=== PATIENT | male | born 1945 | race Caucasian/White ===

== ENCOUNTER → 2016-12-07 | Outpatient (REF) | payer MEDICARE, BC, OTHER ==
[2016-12-07 12:24] LABS: MEAN CORPUSCULAR HEMOGLOBIN 30.2 pg (27.0-33.0); MEAN CORPUSCULAR VOLUME 88.6 fl (80.0-96.0); RED CELL DISTRIBUTION WIDTH 12.6 % (11.5-14.5); WHITE BLOOD COUNT 6.4 K/mm3 (4.0-10.0)
[2016-12-07 12:39] LABS: ALBUMIN 3.9 GM/DL (3.2-5.2); ALKALINE PHOSPHATASE 73 U/L (45-117); ALT/SGPT 24 U/L (12-78); ANION GAP 6 MEQ/L (8-16); AST/SGOT 16 U/L (15-37); BILIRUBIN,TOTAL 1.4 MG/DL (0.2-1.0); BLOOD UREA NITROGEN 23 MG/DL (7-18); CALCIUM LEVEL 8.7 MG/DL (8.8-10.2); CARBON DIOXIDE LEVEL 31 MEQ/L (21-32); CHLORIDE LEVEL 105 MEQ/L (98-107); CHOLESTEROL LEVEL 105 MG/DL (<200); CREATININE FOR GFR 1.05 MG/DL (0.70-1.30); GLOMERULAR FILTRATION RATE > 60.0 (>49); GLUCOSE, FASTING 125 MG/DL (80-110); POTASSIUM SERUM 4.2 MEQ/L (3.5-5.1); SODIUM LEVEL 142 MEQ/L (136-145); TOTAL PROTEIN 6.5 GM/DL (6.4-8.2); TRIGLYCERIDES LEVEL 32 MG/DL (<150)
== END ==
LOC: M LABDRAW1 11:55
PROVIDERS: ATTEND Family Medicine
DX: I10 Essential (primary) hypertension (principal)

== ENCOUNTER → 2018-03-22 | Outpatient (CLI) | payer MEDICARE, BC, OTHER ==
[2018-03-22 07:40] LABS: BASO % 0.7 % (0.0-1.0); EOS # 0.1 10^3/uL (0.0-0.50); EOS % 2.3 % (0.0-3.0); HEMATOCRIT 43.1 % (42.0-52.0); HEMOGLOBIN 14.9 g/dl (13.5-17.5); IMMATURE GRANULOCYTE % 0.3 % (0-3.0); LYMPH # 1.3 10^3/uL (1.5-4.5); LYMPH % 22.1 % (24.0-44.0); MEAN CORPUSCULAR HEMOGLOBIN 29.7 pg (27.0-33.0); MEAN CORPUSCULAR HGB CONC 34.6 g/dl (32.0-36.5); MONO # 0.6 10^3/uL (0.0-0.8); MONO % 9.3 % (0.0-5.0); NEUTROPHILS # 3.9 10^3/uL (1.8-7.7); NEUTROPHILS % 65.3 % (36.0-66.0); PLATELET COUNT, AUTOMATED 192 10^3/uL (150-450); RED BLOOD COUNT 5.01 10^6/uL (4.30-6.10); RED CELL DISTRIBUTION WIDTH 13.2 % (11.5-14.5)
[2018-03-22 08:37] LABS: ALBUMIN 3.9 GM/DL (3.2-5.2); ALBUMIN/GLOBULIN RATIO 1.39 (1.00-1.93); ALKALINE PHOSPHATASE 84 U/L (45-117); ALT/SGPT 29 U/L (12-78); ANION GAP 9 MEQ/L (8-16); AST/SGOT 17 U/L (7-37); BILIRUBIN,TOTAL 1.7 MG/DL (0.2-1.0); BLOOD UREA NITROGEN 21 MG/DL (7-18); CALCIUM LEVEL 8.7 MG/DL (8.8-10.2); CARBON DIOXIDE LEVEL 28 MEQ/L (21-32); CHLORIDE LEVEL 105 MEQ/L (98-107); CHOLESTEROL LEVEL 114 MG/DL (<200); CHOLESTEROL RISK RATIO 2.533 (<5); GLOMERULAR FILTRATION RATE > 60.0 (>42); GLUCOSE, FASTING 104 MG/DL (70-100); HDL CHOLESTEROL 45 MG/DL (>40); LDL CHOLESTEROL 57.4 MG/DL (<100); NON-HDL-C 69 MG/DL; POTASSIUM SERUM 4.1 MEQ/L (3.5-5.1); SODIUM LEVEL 142 MEQ/L (136-145); TOTAL PROTEIN 6.7 GM/DL (6.4-8.2); TRIGLYCERIDES LEVEL 58 MG/DL (<150)
== END ==
LOC: M LAB 06:30
DX: I10 Essential (primary) hypertension (principal)
CPT/HCPCS: 80053

== ENCOUNTER 2018-07-31 12:44 | Emergency (ER) | payer MEDICARE, BC, OTHER ==
[2018-07-31 13:48] LABS: KETONE, URINE AUTO RFX NEGATIVE (NEGATIVE); LEUKOCYTE ESTERASE UR AUTO RFX NEGATIVE (NEGATIVE); MUCUS, URINE RFX SMALL (NEGATIVE); NITRITE, URINE AUTO RFX NEGATIVE (NEGATIVE); RBC, URINE AUTO RFX 78 /HPF (0-3); SPECIFIC GRAVITY UR AUTO RFX 1.021 (1.002-1.035); SQUAM EPITHELIAL CELL UR AURFX 0 /HPF (0-6); WBC, URINE AUTO RFX 1 /HPF (0-3)
[2018-07-31 14:50] LABS: BASO # 0.1 10^3/uL (0.0-0.2); BASO % 0.5 % (0.0-1.0); EOS % 0.2 % (0.0-3.0); HEMATOCRIT 44.9 % (42.0-52.0); HEMOGLOBIN 15.3 g/dl (13.5-17.5); IMMATURE GRANULOCYTE % 0.3 % (0-3.0); LYMPH # 0.7 10^3/uL (1.5-4.5); LYMPH % 7.2 % (24.0-44.0); MEAN CORPUSCULAR HEMOGLOBIN 29.8 pg (27.0-33.0); MEAN CORPUSCULAR HGB CONC 34.1 g/dl (32.0-36.5); MEAN CORPUSCULAR VOLUME 87.4 fl (80.0-96.0); MONO # 0.5 10^3/uL (0.0-0.8); MONO % 4.8 % (0.0-5.0); NEUTROPHILS # 8.9 10^3/uL (1.8-7.7); PLATELET COUNT, AUTOMATED 193 10^3/uL (150-450); RED BLOOD COUNT 5.14 10^6/uL (4.30-6.10); RED CELL DISTRIBUTION WIDTH 12.9 % (11.5-14.5); WHITE BLOOD COUNT 10.2 10^3/uL (4.0-10.0)
[2018-07-31] MEDS: NS 1,000 ML IV (14:59)
[2018-07-31] MEDS: ONDANSETRON 4MG/2ML VIAL (J2405) IV (14:59)
[2018-07-31] MEDS: KETOROLAC 30 MG/ML VIAL (J1885) IV (14:59)
[2018-07-31 15:02] LABS: INR 0.94; PROTHROMBIN TIME 12.7 SECONDS (12.1-14.4)
[2018-07-31 15:03] LABS: PARTIAL THROMBOPLASTIN TIME 32.3 SECONDS (25.4-37.6)
[2018-07-31 15:36] LABS: ALBUMIN 4.4 GM/DL (3.2-5.2); ALBUMIN/GLOBULIN RATIO 1.63 (1.00-1.93); ALKALINE PHOSPHATASE 90 U/L (45-117); ALT/SGPT 28 U/L (12-78); AMYLASE 39 U/L (25-115); ANION GAP 9 MEQ/L (8-16); AST/SGOT 20 U/L (7-37); BILIRUBIN,DIRECT 0.3 MG/DL (0.0-0.2); BILIRUBIN,TOTAL 1.8 MG/DL (0.2-1.0); BLOOD UREA NITROGEN 26 MG/DL (7-18); CALCIUM LEVEL 9.2 MG/DL (8.8-10.2); CARBON DIOXIDE LEVEL 26 MEQ/L (21-32); CHLORIDE LEVEL 107 MEQ/L (98-107); GLOMERULAR FILTRATION RATE > 60.0 (>42); GLUCOSE, FASTING 106 MG/DL (70-100); LIPASE 111 U/L (73-393); POTASSIUM SERUM 3.9 MEQ/L (3.5-5.1); SODIUM LEVEL 142 MEQ/L (136-145); TOTAL PROTEIN 7.1 GM/DL (6.4-8.2)
[2018-07-31] MEDS: TAMSULOSIN 0.4 MG CAP PO (16:25)
== END 2018-07-31 16:38 | disposition home or self-care (01) ==
LOC: M ED 12:44
DX: N23 Unspecified renal colic (principal); N13.4 Hydroureter; R11.0 Nausea; I10 Essential (primary) hypertension; Z87.442 Personal history of urinary calculi; Z79.899 Other long term (current) drug therapy
CPT/HCPCS: J2405

== ENCOUNTER → 2018-08-03 | Outpatient (CLI) | payer MEDICARE, BC, OTHER ==
[2018-08-03 18:05] LABS: APPEARANCE, URINE CLEAR (CLEAR); BACTERIA, URINE AUTO NEGATIVE (NEGATIVE); BILIRUBIN, URINE AUTO NEGATIVE (NEGATIVE); BLOOD, URINE BLOOD 1+ (NEGATIVE); COLOR, URINE YELLOW (YELLOW); GLUCOSE, URINE (UA) AUTO NEGATIVE (NEGATIVE); KETONE, URINE AUTO NEGATIVE (NEGATIVE); LEUKOCYTE ESTERASE, URINE AUTO NEGATIVE (NEGATIVE); MUCUS, URINE SMALL (NEGATIVE); NITRITE, URINE AUTO NEGATIVE (NEGATIVE); PROTEIN, URINE AUTO NEGATIVE (NEGATIVE); RBC, URINE AUTO 2 /HPF (0-3); SPECIFIC GRAVITY URINE AUTO 1.016 (1.002-1.035); SQUAMOUS EPITHELIAL CELL UR AU 0 /HPF (0-6); WBC, URINE AUTO 1 /HPF (0-3)
== END ==
LOC: M SMT 15:16
DX: N20.0 Calculus of kidney (principal)
CPT/HCPCS: 81001

== ENCOUNTER → 2018-08-10 | Outpatient (CLI) | payer MEDICARE, BC, OTHER | LOC: M RAD 11:40 | DX: N40.0 Benign prostatic hyperplasia without lower urinary tract symptoms (principal); Z87.442 Personal history of urinary calculi; R39.198 Other difficulties with micturition | CPT/HCPCS: 76775 ==

== ENCOUNTER → 2018-08-31 | Outpatient (REF) | payer MEDICARE, OTHER ==
[2018-08-31 17:54] LABS: APPEARANCE, URINE CLEAR (CLEAR); BACTERIA, URINE AUTO NEGATIVE (NEGATIVE); BILIRUBIN, URINE AUTO NEGATIVE (NEGATIVE); BLOOD, URINE BLOOD NEGATIVE (NEGATIVE); COLOR, URINE YELLOW (YELLOW); GLUCOSE, URINE (UA) AUTO NEGATIVE (NEGATIVE); KETONE, URINE AUTO NEGATIVE (NEGATIVE); LEUKOCYTE ESTERASE, URINE AUTO NEGATIVE (NEGATIVE); MUCUS, URINE SMALL (NEGATIVE); NITRITE, URINE AUTO NEGATIVE (NEGATIVE); PROTEIN, URINE AUTO NEGATIVE (NEGATIVE); RBC, URINE AUTO 1 /HPF (0-3); SPECIFIC GRAVITY URINE AUTO 1.016 (1.002-1.035); SQUAMOUS EPITHELIAL CELL UR AU 0 /HPF (0-6); UROBILINOGEN, URINE AUTO 0.2 mg/dL (0.0-2.0); WBC, URINE AUTO 1 /HPF (0-3)
== END ==
LOC: M SMT 17:11
DX: N20.0 Calculus of kidney (principal)
CPT/HCPCS: 81001

== ENCOUNTER → 2019-08-01 | Outpatient (REF) | payer MEDICARE, OTHER ==
[~2019-08-01] MED LIST: ATOR1TAB21; ENAL5TAB; FLOM0.4C39 PO; IBUP-1022 PO; MELO15TA28; NORC1TAB7 PO; ZOFR4TAB14 PO
[2019-08-01 16:52] LABS: BLOOD UREA NITROGEN 17 MG/DL (7-18); CALCIUM LEVEL 8.6 MG/DL (8.8-10.2); CARBON DIOXIDE LEVEL 25 MEQ/L (21-32); CHLORIDE LEVEL 108 MEQ/L (98-107); CREATININE FOR GFR 1.05 MG/DL (0.70-1.30); GLOMERULAR FILTRATION RATE > 60.0 (>42); GLUCOSE, FASTING 99 MG/DL (70-100); POTASSIUM SERUM 4.1 MEQ/L (3.5-5.1); SODIUM LEVEL 141 MEQ/L (136-145)
== END ==
LOC: M LABDRAW1 15:45
PROVIDERS: ATTEND Family Medicine
DX: N20.0 Calculus of kidney (principal)

== ENCOUNTER → 2021-04-10 | Outpatient (REF) | payer MEDICARE, OTHER ==
[~2021-04-10] MED LIST changes: +ENAL5TA; -ENAL5TAB
== END ==
LOC: M LAB REF 19:47
PROVIDERS: ATTEND Physician Assistant
DX: N20.9 Urinary calculus, unspecified (principal)

== ENCOUNTER 2021-04-21 15:49 | Inpatient (IN) | payer MEDICARE, BC, OTHER ==
[~2021-04-21] VITALS: Ht 167.6 cm; Wt 89.5 kg
[~2021-04-21 15:49] MED LIST changes: -ATOR1TAB21; +ATOR1TAB21 PO; -ENAL5TA; +ENAL5TA PO; -MELO15TA28; +MELO15TA28 PO
[2021-04-21 16:35] LABS: VENOUS HCO3 21.3 MEQ/L (23.0-27.0); VENOUS O2 SATURATION 87.1 % (60.0-80.0); VENOUS PARTIAL PRESSURE O2 54.7 mmHg (30.0-50.0); VENOUS PH 7.345 UNITS (7.330-7.430); VENOUS STANDARD HCO3 20.9 MEQ/L; VENOUS TOTAL CO2 22.6 MEQ/L (24.0-28.0)
[2021-04-21 16:46] LABS: BASO % 0.6 % (0.0-1.0); EOS % 0.3 % (0.0-3.0); HEMATOCRIT 43.5 % (42.0-52.0); HEMOGLOBIN 14.4 g/dl (13.5-17.5); LYMPH # 1.3 10^3/uL (1.5-5.0); LYMPH % 18.5 % (24.0-44.0); MEAN CORPUSCULAR HEMOGLOBIN 28.5 pg (27.0-33.0); MEAN CORPUSCULAR HGB CONC 33.1 g/dl (32.0-36.5); MONO # 0.5 10^3/uL (0.0-0.8); MONO % 7.4 % (2.0-8.0); NEUTROPHILS # 5.1 10^3/uL (1.5-8.5); NEUTROPHILS % 72.9 % (36.0-66.0); PLATELET COUNT, AUTOMATED 215 10^3/uL (150-450); RED BLOOD COUNT 5.06 10^6/uL (4.30-6.10)
--- NOTE | 2021-04-21 17:01 | REP ---
INDICATION: DYSPNEA/COUGH. COMPARISON: Comparison chest x-ray January 24, 2008. TECHNIQUE: Portable upright AP chest radiograph. FINDINGS: The lungs are symmetrically aerated and free of infiltrate. EKG electrodes are seen. There is moderate cardiac enlargement which is a new finding compared to the 2008 prior study. Pulmonary vascular cephalization is seen. There is no evidence of pleural effusion or pulmonary edema. The thoracic aorta is tortuous. No acute bony abnormality.. IMPRESSION: CHF pattern with moderate cardiomegaly and pulmonary vascular congestion. No evidence of pleural effusion or pulmonary edema. No focal infiltrate.. <Electronically signed by Dandy Schulte > 04/21/21 [id number]
[2021-04-21 17:14] LABS: BILIRUBIN,DIRECT 0.4 MG/DL (0.0-0.2); BILIRUBIN,TOTAL 2.6 MG/DL (0.2-1.0); THYROID STIMULATING HORMONE 1.61 uIU/ML (0.358-3.740); THYROXINE (T4) 11.2 UG/DL (4.5-12.0); TOTAL PROTEIN 6.4 GM/DL (6.4-8.2)
[2021-04-21] MEDS ORDERED: FUROSEMIDE 40MG/4ML VIAL (J1940) IV ONE (17:20)
[2021-04-21] MEDS ORDERED: ACETAMINOPHEN TAB 650MG DOSE (2X325MG) PO PRN (18:05)
[2021-04-21] MEDS ORDERED: ALBU8.5H INH (18:34)
[2021-04-21 19:24] LABS: RSV AMPLIFICATION NEGATIVE (NEGATIVE)
[2021-04-21] MEDS ORDERED: AMIODARONE HCL 150 MG in IV 1 EA IV STA (19:39)
--- NOTE | 2021-04-21 19:40 | HPEPDOC ---
[facility] Medical History & Physical Date of Admission Apr 21, 2021 Date of Service: Apr 21, 2021 Attending Physician: FERMIN HERNANDEZ MD History and Physical CHIEF COMPLAINT: Persistent SOB worse with exertion and palpitations. HISTORY OF PRESENT ILLNESS: 76 yo M with a history of obesity, HTN, HLD, frequent kidney stones who recently passed several stone in the last 3w, who reports a 3w history of worsening SOB especially exertion for which at first he had a flu-like illness for which he presented to an outside provider who gave him a 10d course of amoxicillin without resolution of symptoms and the last few days has become severe enough to limit his physical activity. This is all without a history of fever, chills, coughing, nausea, emesis, abdominal pain, dysuria, hematuria, hematochezia, melena or noted LE edema. In the ED he was initially normotensive but later had recorded hypertension to SBP 180s, and tachycardic with frequent PVCs that he reported as "I have had palpitations and skipped beats for a long time." EKG showed sinus rhythm with some bigeminy and scattered PVCs without ST changes, troponin was negative, WBC 7, Hgb 14.4, platelets 215, na 140, K 4.2, Mag 2, Cr 1.1, glucose 121, AST 48, ALT 107, Tbili 2.6, Dbili 0.4, proBNP 5205, TSH 1.61 with T4 of 11.2, while CXR showed diffuse cephalization with anish pulmonary vascular congestion. He is now being given 40 of IV lasix and being admitted to medicine for newly noted heart failure with exacerbation. PAST MEDICAL HISTORY: Obesity HTN HLD Frequent kidney stones Chronic subjective palpitations Concussion as a child PAST SURGICAL HISTORY: L hip arthroplasty R TKA R ankle surgeries in the 1970s R foot and ankle surgeries in the 1980s SOCIAL HISTORY: Marital status: Tobacco use: None ETOH: Rare Illicit drug use: None FAMILY HISTORY: Father: Does not know Mother: at 49yo from heart problems Siblings: from heart problems, had a valve replaced. Children: daughter has a history of kidney stones ALLERGIES: Please see below. REVIEW OF SYSTEMS: 10 point ROS was reviewed and otherwise negative except as noted in the HPI HOME MEDICATIONS: Please see below. PHYSICAL EXAMINATION: VITAL SIGNS: see below GENERAL APPEARANCE: NAD, obese HEENT: NCAT, EOMI, MMM CARDIOVASCULAR: RRR, no m/r/g LUNGS: Bibasilar crackles, no wheezing ABDOMEN: Obese, normoactive bowel sounds, soft, NTND EXTREMITIES: WWP, no LE edema at this time NEUROLOGICAL: CN3-12 grossly intact, moving all extremities without asymmetry PSYCHIATRIC: AOx3 LABORATORY DATA and IMAGING: Summarized above MICROBIOLOGY: Please see below. ASSESSMENT: 76 yo M with a history of obesity, HTN, HLD, frequent kidney stones who recently passed several stone in the last 3w, a chronic history of subjective palpitations, who reports a 3w history of worsening SOB especially exertion now being admitted for newly noted CHF with acute exacerbation. 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 with high ectopy burden and history of chronic tachycardia and cardiomegaly on CXR -TTE ordered -lasix 40 IV Q8H, diuretic naive at this time so will watch response closely -strict I/Os -daily weights -2g sodium diet wtih 2L/24h fluid restriction -Telemetry -Daily K, Mag -EKG was nonischemic and troponin was negative -will continue enalapril and start metop 25 BID with hold parameters Frequent PVCs: -metop 25 BID -Telemetry -Daily K, Mag -TTE -will need cardiology referral at discharge, high PVC burden may require ablation HTN: -continue ACEi, add metop tartrate BID with hold parameters BPH: -continue tamsulosin HLD: -continue lipitor, increase to 40mg QD DVT ppx: -heparin SC TID Vital Signs Vital Signs Date Time Temp Pulse Resp B/P (MAP) Pulse Ox O2 Delivery O2 Flow Rate FiO2 04/21/21 16:52 04/21/21 16:49 100 95 04/21/21 15:49 97.9 18 Room Air Laboratory Data Labs 24H Laboratory Tests 2 04/21/21 16:18: Blood Gas Bicarbonate Standard 20.9, Venous Blood pH 7.345, Venous Blood Partial Pressure CO2 40.0, Venous Blood Partial Pressure O2 54.7H, Venous Blood Total Carbon Dioxide 22.6L, Venous Blood HCO3 21.3L, Venous Blood Oxygen Saturation 87.1H, Venous Blood Base Excess -4.0L 04/21/21 16:19: Immature Granulocyte % (Auto) 0.3, Neutrophils (%) (Auto) 72.9H, Lymphocytes (%) (Auto) 18.5L, Monocytes (%) (Auto) 7.4, Eosinophils (%) (Auto) 0.3, Basophils (%) (Auto) 0.6, Neutrophils # (Auto) 5.1, Lymphocytes # (Auto) 1.3L, Monocytes # (Auto) 0.5, Eosinophils # (Auto) 0.0, Basophils # (Auto) 0.0, Nucleated Red Blood Cells % (auto) 0.0, Lactic Acid Level 2.0, Magnesium Level 2.0, Total Bilirubin 2.6H, Direct Bilirubin 0.4H, Aspartate Amino Transf (AST/SGOT) 48H, Alanine Aminotransferase (ALT/SGPT) 107H, Alkaline Phosphatase 110, TA-Frn-D-Type Natriuretic Peptide 5205H, Total Protein 6.4, Albumin 4.0, Albumin/Globulin Ratio 1.7, Thyroid Stimulating Hormone (TSH) 1.610, Thyroxine (T4) 11.2 04/21/21 16:37: POC Glucose (Misc Panel) 121H, POC Sodium (Misc Panel) 140, POC Potassium (Misc Panel) 4.2, POC Chloride (Misc Panel) 104, POC Total CO2 (Misc Panel) 20.0L, POC Blood Urea Nitrogen (Misc Panel 19, POC Ionized Calcium (Misc Panel) 4.6, POC Creatinine (Misc Panel) 1.1, POC Hematocrit (Misc Panel) 44.0 04/21/21 16:41: POC Troponin I (Misc) 0.00 04/21/21 18:09: CBC/BMP Laboratory Tests 04/21/21 16:19 Microbiology Microbiology 04/21/21 Blood Culture, Received Pending 04/21/21 Blood Culture, Received Pending Home Medications Scheduled Atorvastatin Calcium (Atorvastatin Calcium) 20 Mg Tab, 20 MG PO QHS Enalapril Maleate (Enalapril Maleate) 5 Mg Tab, 5 MG PO QHS Scheduled PRN Albuterol Sulfate (Albuterol Sulfate Hfa) 8.5 Gm Hfa.aer.ad, 2 PUFF INH Q4H PRN for SOB/WHEEZING Meloxicam (Meloxicam) 15 Mg Tab, 15 MG PO DAILY PRN for ARTHRITIS PAIN Allergies Coded Allergies: morphine (Verified Adverse Reaction, Intermediate, rapid heartrate, 04/21/21) A-FIB/CHADSVASC A-FIB History Current/History of A-Fib/PAF?: No Current PO Anticoag Therapy: No Age/Risk Factor Scoring CHADSVASC: CHADSVASC Response (Comments) Value Age Risk Factor Age 65-74 years old 1 Gender Risk Factor Male 0 Hx of CHF Yes 1 Hx of HTN Yes 1 Hx of Stroke/TIA/or VTE No 0 Hx of Diabetes No 0 Hx of Vascular Disease No 0 Total 3 Treatment Treatment ordered: NONE Reason Anticoagulant not given: Not indicated/Wfrht2ntim FERMIN HERNANDEZ MD Apr 21, 2021 18:49
[2021-04-21 20:46] VITALS: BP 142/84
[2021-04-21] MEDS: HEPARIN SOD (PORCINE) 5000UNITS/ML 1ML VIAL/SYRINGE SC SCH (21:19)
[2021-04-21] MEDS: METOPROLOL TART 25 MG TABLET PO SCH (21:21)
[2021-04-21] MEDS: ATORVASTATIN 20 MG TAB PO SCH (21:21)
[2021-04-21] MEDS: ENALAPRIL MALEATE 5 MG TAB PO SCH (21:39)
[2021-04-22] VITALS: BP 118/78
[2021-04-22] MEDS: FUROSEMIDE 40MG/4ML VIAL (J1940) IV SCH ×3 (00:30→15:20)
[2021-04-22 03:18] VITALS: BP 132/96
[2021-04-22 04:00] VITALS: BP 128/70
[2021-04-22] MEDS ORDERED: AMIODARONE HCL 150 MG in IV 1 EA IV STA (04:04)
[2021-04-22] MEDS: HEPARIN SOD (PORCINE) 5000UNITS/ML 1ML VIAL/SYRINGE SC SCH ×3 (05:40→21:40)
[2021-04-22 05:46] LABS: HEMATOCRIT 40.8 % (42.0-52.0); HEMOGLOBIN 13.6 g/dl (13.5-17.5); MEAN CORPUSCULAR HEMOGLOBIN 28.3 pg (27.0-33.0); MEAN CORPUSCULAR HGB CONC 33.3 g/dl (32.0-36.5); MEAN CORPUSCULAR VOLUME 84.8 fl (80.0-96.0); PLATELET COUNT, AUTOMATED 192 10^3/uL (150-450); RED BLOOD COUNT 4.81 10^6/uL (4.30-6.10); WHITE BLOOD COUNT 6.6 10^3/uL (4.0-10.0)
--- NOTE | 2021-04-22 05:50 | ECGEPIP ---
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
[2021-04-22 06:10] LABS: ALBUMIN 3.6 GM/DL (3.2-5.2); ALT/SGPT 93 U/L (12-78); BILIRUBIN,TOTAL 2.1 MG/DL (0.2-1.0); BLOOD UREA NITROGEN 20 MG/DL (7-18); CALCIUM LEVEL 9.1 MG/DL (8.8-10.2); CARBON DIOXIDE LEVEL 26 MEQ/L (21-32); CHLORIDE LEVEL 107 MEQ/L (98-107); CREATININE FOR GFR 1.12 MG/DL (0.70-1.30); GLOMERULAR FILTRATION RATE > 60.0 (>42); GLUCOSE, FASTING 116 MG/DL (70-100); MAGNESIUM LEVEL 1.9 MG/DL (1.8-2.4); POTASSIUM SERUM 3.6 MEQ/L (3.5-5.1); SODIUM LEVEL 141 MEQ/L (136-145); TOTAL PROTEIN 6.5 GM/DL (6.4-8.2)
[2021-04-22] MEDS: ASPIRIN 81 MG CHEW TABLET PO SCH (08:30)
[2021-04-22] MEDS: METOPROLOL TART 25 MG TABLET PO SCH ×2 (08:31→21:41)
--- NOTE | 2021-04-22 12:10 | IPNPDOC ---
Subjective Date Seen The patient was seen on 04/22/21. Subjective Chief Complaint/HPI Feels much better today. Denies any SOB , no cough. No leg swelling . Feels that his abdomen is less distended. Objective Physical Examination General Exam: Positive: Alert, Cooperative, No Acute Distress Eye Exam: Positive: PERRLA, Conjunctiva & lids normal, EOMI; Negative: Sclera icteric ENT Exam: Positive: Atraumatic, Mucous membr. moist/pink, Pharynx Normal Neck Exam: Positive: Supple, JVD; Negative: thyromegaly Chest Exam: Positive: Other (crackles at the bases); Negative: Clear to auscultation, Rales, Rhonchi, Wheezing Heart Exam: Positive: Rate Normal, Irregular Rhythm, Normal S1, Normal S2; Negative: Gallops, Murmurs, Rubs, Other Telemetry: Positive: PVCs Abdomen Exam: Positive: Normal bowel sounds, Soft; Negative: Tenderness, Hepatospenomegaly Extremity Exam: Positive: Edema; Negative: Clubbing, Cyanosis Assessment /Plan Assessment 76 yo M with a history of obesity, HTN, HLD, skipped beats, frequent kidney stones who recently passed several stones in the last 3w, presented to the ED with worsening SOB especially on exertion which was initially treated outpatient as a viral respiratory illness without any improvement so presented to ED. In the ED he was initially normotensive but later had recorded hypertension to SBP 180s, and tachycardic with frequent PVC. EKG showed sinus rhythm with some bigeminy and scattered PVCs without ST changes, while CXR showed diffuse cephalization with anish pulmonary vascular congestion. He was admitted to [facility] for new inset CHF with exacerbation. Newly noted CHF with acute exacerbation: unknown etiology at this time. TTE ordered IV lasix strict I/Os daily weights 2g sodium diet wtih 2L/24h fluid restriction Cardiac arrhythmias. Frequent PVCs, bigeminis: metop 25 BID will need cardiology referral at discharge, high PVC burden may require ablation HTN: continue ACEi, metop tartrate with hold parameters BPH: continue tamsulosin HLD: continue lipitor, increased to 40mg QD Obesity Frequent kidney stones Plan/VTE VTE Prophylaxis Ordered?: Yes VS, I&O, 24H, Fishbone Vital Signs/I&O Vital Signs Date Time Temp Pulse Resp B/P (MAP) Pulse Ox O2 Delivery O2 Flow Rate FiO2 7/27/21 11:47 97.9 76 18 97 Room Air 04/22/21 08:31 130/83 I&O- Last 24 Hours up to 6 AM 04/22/21 06:00 Intake Total 200 ml Output Total 1900 ml Balance -1700 ml Laboratory Data 24H LABS Laboratory Tests 2 04/21/21 16:18: Blood Gas Bicarbonate Standard 20.9, Venous Blood pH 7.345, Venous Blood Partial Pressure CO2 40.0, Venous Blood Partial Pressure O2 54.7H, Venous Blood Total Carbon Dioxide 22.6L, Venous Blood HCO3 21.3L, Venous Blood Oxygen Saturation 87.1H, Venous Blood Base Excess -4.0L 04/21/21 16:19: Immature Granulocyte % (Auto) 0.3, Neutrophils (%) (Auto) 72.9H, Lymphocytes (%) (Auto) 18.5L, Monocytes (%) (Auto) 7.4, Eosinophils (%) (Auto) 0.3, Basophils (%) (Auto) 0.6, Neutrophils # (Auto) 5.1, Lymphocytes # (Auto) 1.3L, Monocytes # (Auto) 0.5, Eosinophils # (Auto) 0.0, Basophils # (Auto) 0.0, Nucleated Red Blood Cells % (auto) 0.0, Lactic Acid Level 2.0, Magnesium Level 2.0, Total Bilirubin 2.6H, Direct Bilirubin 0.4H, Aspartate Amino Transf (AST/SGOT) 48H, Alanine Aminotransferase (ALT/SGPT) 107H, Alkaline Phosphatase 110, QM-Gky-D-Type Natriuretic Peptide 5205H, Total Protein 6.4, Albumin 4.0, Albumin/Globulin Ratio 1.7, Thyroid Stimulating Hormone (TSH) 1.610, Thyroxine (T4) 11.2 04/21/21 16:37: POC Glucose (Misc Panel) 121H, POC Sodium (Misc Panel) 140, POC Potassium (Misc Panel) 4.2, POC Chloride (Misc Panel) 104, POC Total CO2 (Misc Panel) 20.0L, POC Blood Urea Nitrogen (Misc Panel 19, POC Ionized Calcium (Misc Panel) 4.6, POC Creatinine (Misc Panel) 1.1, POC Hematocrit (Misc Panel) 44.0 04/21/21 16:41: POC Troponin I (Misc) 0.00 04/21/21 18:09: Coronavirus (COVID-19)(PCR) NEGATIVE, Influenza Type A (RT-PCR) NEGATIVE, Influenza Type B (RT-PCR) NEGATIVE, Respiratory Syncytial Virus (PCR) NEGATIVE 04/22/21 05:17: Nucleated Red Blood Cells % (auto) 0.0, Anion Gap 8, Glomerular Filtration Rate > 60.0, Calcium Level 9.1, Magnesium Level 1.9, Total Bilirubin 2.1H, Aspartate Amino Transf (AST/SGOT) 37, Alanine Aminotransferase (ALT/SGPT) 93H, Alkaline Phosphatase 100, Total Protein 6.5, Albumin 3.6, Albumin/Globulin Ratio 1.2 CBC/BMP Laboratory Tests 04/21/21 16:19 04/22/21 05:17 Microbiology Microbiology 04/21/21 Blood Culture, Received Pending 04/21/21 Blood Culture, Received Pending ARIANNE ALVARADO MD Apr 22, 2021 12:10
[2021-04-22 20:00] VITALS: BP 138/72
[2021-04-22] MEDS: ENALAPRIL MALEATE 5 MG TAB PO SCH (21:40)
[2021-04-22] MEDS: ATORVASTATIN 20 MG TAB PO SCH (21:40)
--- NOTE | 2021-04-22 21:58 | ECGEPIP ---
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
[2021-04-23] VITALS: BP 132/70
[2021-04-23] MEDS: FUROSEMIDE 40MG/4ML VIAL (J1940) IV SCH ×2 (01:37→08:35)
[2021-04-23] MEDS: HEPARIN SOD (PORCINE) 5000UNITS/ML 1ML VIAL/SYRINGE SC SCH ×2 (05:30→14:00)
[2021-04-23 06:05] LABS: HEMATOCRIT 46.6 % (42.0-52.0); HEMOGLOBIN 15.5 g/dl (13.5-17.5); MEAN CORPUSCULAR HEMOGLOBIN 28.2 pg (27.0-33.0); MEAN CORPUSCULAR HGB CONC 33.3 g/dl (32.0-36.5); MEAN CORPUSCULAR VOLUME 84.9 fl (80.0-96.0); PLATELET COUNT, AUTOMATED 229 10^3/uL (150-450); RED BLOOD COUNT 5.49 10^6/uL (4.30-6.10); WHITE BLOOD COUNT 8.3 10^3/uL (4.0-10.0)
[2021-04-23 06:35] LABS: ALT/SGPT 94 U/L (12-78); BILIRUBIN,TOTAL 2.1 MG/DL (0.2-1.0); BLOOD UREA NITROGEN 24 MG/DL (7-18); CALCIUM LEVEL 9.1 MG/DL (8.8-10.2); CARBON DIOXIDE LEVEL 28 MEQ/L (21-32); CHLORIDE LEVEL 105 MEQ/L (98-107); CREATININE FOR GFR 1.14 MG/DL (0.70-1.30); GLOMERULAR FILTRATION RATE > 60.0 (>42); GLUCOSE, FASTING 129 MG/DL (70-100); MAGNESIUM LEVEL 2.1 MG/DL (1.8-2.4); POTASSIUM SERUM 3.5 MEQ/L (3.5-5.1); SODIUM LEVEL 140 MEQ/L (136-145); TOTAL PROTEIN 7.2 GM/DL (6.4-8.2)
[2021-04-23 07:58] VITALS: BP 150/70
[2021-04-23 08:35] VITALS: BP 150/70
[2021-04-23] MEDS: ASPIRIN 81 MG CHEW TABLET PO SCH (08:35)
[2021-04-23] MEDS: METOPROLOL TART 25 MG TABLET PO SCH (08:35)
[2021-04-23] MEDS ORDERED: SLF 3 ML SYR IV PRN (10:00)
[2021-04-23] MEDS ORDERED: ELIQ5TAB PO (10:22)
[2021-04-23] MEDS ORDERED: METO1TAB87 PO (10:22)
[2021-04-23] MEDS ORDERED: LASI40TA9 PO (10:22)
[2021-04-23 12:37] VITALS: BP 150/78
--- NOTE | 2021-04-23 13:48 | DS.PDOC ---
Discharge Summary General Date of Admission Apr 21, 2021 at 18:05 Date of Discharge 04/23/21 Discharge Summary PROCEDURES PERFORMED DURING STAY: [None]. DISCHARGE DIAGNOSES: CHF exacerbation Afib newly diagnosed. SECONDARY DIAGNOSIS: Obesity, HTN, HLD, BPH, frequent kidney stones COMPLICATIONS/CHIEF COMPLAINT: Chf (Congestive Heart Failure),Frequent Pvcs. HOSPITAL COURSE: 76 yo M with a history of obesity, HTN, HLD, skipped beats, frequent kidney stones who recently passed several stones in the last 3w, presented to the ED with worsening SOB especially on exertion which was initially treated outpatient as a viral respiratory illness without any improvement so presented to ED. In the ED he was initially normotensive but later had recorded hypertension to SBP 180s, and tachycardic with frequent PVC. EKG showed sinus rhythm with some bigeminy and scattered PVCs without ST changes, while CXR showed diffuse cephalization with anish pulmonary vascular congestion. He was admitted to medicine for new inset CHF with exacerbation. Newly noted CHF with acute exacerbation: unknown etiology at this time. Folllow up echo reports lasix 40 daily, enalapril and metoprolol 2L/24h fluid restriction Cardiac arrhythmias. Frequent PVCs, bigeminis on the back ground of Afib. rate controlled with metoprolol 25 BID cardiology referral needed. HTN: continue ACEi, metop tartrate BPH: continue tamsulosin HLD: continue lipitor Obesity Frequent kidney stones knowing irish stone composition would benefit in tailoring his diet to reduced the formation. DISCHARGE MEDICATIONS: Please see below. ALLERGIES: Please see below. PHYSICAL EXAMINATION ON DISCHARGE: VITAL SIGNS: Please see below. General Exam: Positive: Alert, Cooperative, No Acute Distress Eye Exam: Positive: PERRLA, Conjunctiva & lids normal, EOMI; Negative: Sclera icteric ENT Exam: Positive: Atraumatic, Mucous membr. moist/pink, Pharynx Normal Neck Exam: Positive: Supple, JVD; Negative: thyromegaly Chest Exam: Positive: Other (crackles at the bases); Negative: Clear to auscultation, Rales, Rhonchi, Wheezing Heart Exam: Positive: Rate Normal, Irregular Rhythm, Normal S1, Normal S2; Negative: Gallops, Murmurs, Rubs, Other Telemetry: Positive: PVCs Abdomen Exam: Positive: Normal bowel sounds, Soft; Negative: Tenderness, Hepatosplenomegaly Extremity Exam: Positive: Edema; Negative: Clubbing, Cyanosis LABORATORY DATA: Please see below. ACTIVITY: [As tolerated]. DIET: 2 gm sodium with 2 L fluid restriction. DISCHARGE PLAN: home DISCHARGE INSTRUCTIONS: PMD in 1 week. referral to cardiology DISCHARGE CONDITION: [Stable]. TIME SPENT ON DISCHARGE: 35 minutes. Vital Signs/I&Os Vital Signs Date Time Temp Pulse Resp B/P (MAP) Pulse Ox O2 Delivery O2 Flow Rate FiO2 04/23/21 12:37 97.9 69 18 150/78 (102) 97 Room Air I&O- Last 24 Hours up to 6 AM 04/23/21 06:00 Intake Total 260 ml Output Total 4375 ml Balance -4115 ml Laboratory Data Labs 24H Laboratory Tests 2 04/23/21 05:44: Nucleated Red Blood Cells % (auto) 0.0, Anion Gap 7L, Glomerular Filtration Rate > 60.0, Calcium Level 9.1, Magnesium Level 2.1, Total Bilirubin 2.1H, Aspartate Amino Transf (AST/SGOT) 39H, Alanine Aminotransferase (ALT/SGPT) 94H, Alkaline Phosphatase 106, Total Protein 7.2, Albumin 4.0, Albumin/Globulin Ratio 1.3 CBC/BMP Laboratory Tests 04/23/21 05:44 Microbiology Microbiology 04/21/21 Blood Culture - Preliminary, Resulted No growth after 24 hours . All specim... 04/21/21 Blood Culture - Preliminary, Resulted No growth after 24 hours . All specim... Discharge Medications Scheduled Apixaban (Eliquis) 5 Mg Tablet, 1 TAB PO BID Atorvastatin Calcium (Atorvastatin Calcium) 20 Mg Tab, 20 MG PO QHS, (Reported) Enalapril Maleate (Enalapril Maleate) 5 Mg Tab, 5 MG PO QHS, (Reported) Furosemide (Lasix) 40 Mg Tablet, 1 TAB PO DAILY Metoprolol Tartrate (Metoprolol Tartrate) 25 Mg Tablet, 25 MG PO BID Scheduled PRN Albuterol Sulfate (Albuterol Sulfate Hfa) 8.5 Gm Hfa.aer.ad, 2 PUFF INH Q4H PRN for SOB/WHEEZING, (Reported) Meloxicam (Meloxicam) 15 Mg Tab, 15 MG PO DAILY PRN for ARTHRITIS PAIN, (Reported) Allergies Coded Allergies: morphine (Verified Adverse Reaction, Intermediate, rapid heartrate, 04/21/21) ARIANNE ALVARADO MD Apr 23, 2021 13:48
[2021-04-23] MEDS ORDERED: SLF 3 ML SYR IV SCH (14:00)
--- NOTE | 2021-04-24 13:37 | ECHO ---
ECHOCARDIOGRAM DATE OF PROCEDURE: 04/22/2021 Age: 76 Gender: Male Height: 66 inches Weight: 214 pounds Body surface area: 2.05 m2 PATIENT LOCATION: Inpatient progressive care unit (PCU), Room 3214 REFERRING PHYSICIAN: Alecia Peralta M.D. INDICATION: Dyspnea MEASUREMENTS: 2D Measurements: RV - 4.4 cm LV - 6.2 cm Septum 1.1 cm Posterior wall 1.1 cm Aortic root 3.6 cm LA - 5.2 cm LVEF 25-30% Doppler Measurements: AV - 0.97 m/sec LVOT - 0.55 m/sec LVOT diameter 2.1 cm MV-E 94 Early mitral deceleration time 24 msec E prime medial 4.8 E prime lateral 5.1 Average E/E prime ratio 19/PCWP 25 mmHg PV - 0.65 m/sec Pulmonary artery acceleration time 58 msec RVSP 55 mmHg IVC - 2.6 cm COMMENTS: Underlying atrial fibrillation with rapid ventricular response. Occasional premature ventricular contractions (PVCs). M-mode and 2-dimensional echocardiography was performed with pulse, continuous wave, color flow and tissue Doppler studies. At least moderately dilated left ventricle with normal wall thickness. Global moderately severe hypokinesis with severe impairment of global resting systolic function. Prominently dilated left atrium with current estimated mean left atrial pressure significantly elevated. Mildly dilated right heart chambers with right ventricular free wall hypokinesis and Doppler evidence of at least moderate pulmonary hypertension. At least moderately dilated inferior vena cava (IVC) with reduced respiratory collapse in keeping with an elevated central venous pressure. Normal aortic dimensions. Mild aortic valvular sclerosis with adequate cusp separation, but premature closure in keeping with reduced forward stroke volume. Mild mitral annular thickening but normal leaflet thickness. "Low flow" appearance to leaflet excursion, but no posterior systolic buckling. At least mild to moderate insufficiency. Normal appearing tricuspid valve with mild to moderate insufficiency. No apparent intracardiac mass or pericardial effusion.
== END 2021-04-23 15:12 | disposition home or self-care (01) | DRG 292 ==
LOC: M ED 15:49 → M ED INP 18:05 → ENRESERV 19:43 → M PCU 20:46
PROVIDERS: ADMIT Internal Medicine; ATTEND Internal Medicine Nephrology
DX: I11.0 Hypertensive heart disease with heart failure (principal); I47.2 Ventricular tachycardia; E66.9 Obesity, unspecified; R00.8 Other abnormalities of heart beat; N40.0 Benign prostatic hyperplasia without lower urinary tract symptoms; I50.9 Heart failure, unspecified; I49.8 Other specified cardiac arrhythmias; E78.5 Hyperlipidemia, unspecified; Z79.899 Other long term (current) drug therapy; Z87.442 Personal history of urinary calculi; Z96.642 Presence of left artificial hip joint; Z96.651 Presence of right artificial knee joint; Z88.5 Allergy status to narcotic agent; Z68.31 Body mass index [BMI] 31.0-31.9, adult

== ENCOUNTER → 2021-06-02 | Outpatient (CLI) | payer MEDICARE, OTHER, BC ==
[~2021-06-02] MED LIST changes: +ALBU8.5H INH; +ELIQ5TAB PO; +LASI40TA9 PO; +METO1TAB87 PO
[2021-06-02 12:44] LABS: HEMATOCRIT 46.4 % (42.0-52.0); HEMOGLOBIN 15.2 g/dl (13.5-17.5); MEAN CORPUSCULAR HEMOGLOBIN 28.1 pg (27.0-33.0); MEAN CORPUSCULAR HGB CONC 32.8 g/dl (32.0-36.5); MEAN CORPUSCULAR VOLUME 85.8 fl (80.0-96.0); PLATELET COUNT, AUTOMATED 192 10^3/uL (150-450); RED BLOOD COUNT 5.41 10^6/uL (4.30-6.10); WHITE BLOOD COUNT 6.9 10^3/uL (4.0-10.0)
[2021-06-02 13:06] LABS: BLOOD UREA NITROGEN 24 MG/DL (7-18); CARBON DIOXIDE LEVEL 31 MEQ/L (21-32); CHLORIDE LEVEL 105 MEQ/L (98-107); CREATININE FOR GFR 1.11 MG/DL (0.70-1.30); GLOMERULAR FILTRATION RATE > 60.0 (>42); GLUCOSE, FASTING 97 MG/DL (70-100); SODIUM LEVEL 141 MEQ/L (136-145)
== END ==
LOC: M WUC 08:58
PROVIDERS: ATTEND Family Medicine
DX: I50.20 Unspecified systolic (congestive) heart failure (principal)

== ENCOUNTER → 2021-06-11 | Outpatient (CLI) | payer MEDICARE, OTHER, BC ==
[2021-06-11 12:33] LABS: ALBUMIN 3.4 GM/DL (3.2-5.2); BLOOD UREA NITROGEN 26 MG/DL (7-18); CALCIUM LEVEL 9.2 MG/DL (8.8-10.2); CARBON DIOXIDE LEVEL 30 MEQ/L (21-32); CHLORIDE LEVEL 108 MEQ/L (98-107); GLOMERULAR FILTRATION RATE > 60.0 (>42); GLUCOSE, FASTING 66 MG/DL (70-100); NT-PRO BNP 1473 PG/ML (<125); PHOSPHORUS LEVEL 3.1 MG/DL (2.5-4.9); POTASSIUM SERUM 4.2 MEQ/L (3.5-5.1); SODIUM LEVEL 143 MEQ/L (136-145)
== END ==
LOC: M WUC 09:25
PROVIDERS: ATTEND Internal Medicine Cardiovascular Disease
DX: I50.42 Chronic combined systolic (congestive) and diastolic (congestive) heart failure (principal)

== ENCOUNTER → 2021-07-21 | Outpatient (CLI) | payer MEDICARE, OTHER, BC ==
[2021-07-21 11:05] LABS: ALBUMIN 3.6 GM/DL (3.2-5.2); BLOOD UREA NITROGEN 25 MG/DL (7-18); CALCIUM LEVEL 8.9 MG/DL (8.8-10.2); CARBON DIOXIDE LEVEL 30 MEQ/L (21-32); CHLORIDE LEVEL 107 MEQ/L (98-107); CREATININE FOR GFR 1.13 MG/DL (0.70-1.30); GLOMERULAR FILTRATION RATE > 60.0 (>42); GLUCOSE, FASTING 131 MG/DL (70-100); NT-PRO BNP 1425 PG/ML (<125); PHOSPHORUS LEVEL 3.1 MG/DL (2.5-4.9); POTASSIUM SERUM 3.7 MEQ/L (3.5-5.1); SODIUM LEVEL 141 MEQ/L (136-145)
== END ==
LOC: M WUC 08:42
PROVIDERS: ATTEND Internal Medicine Cardiovascular Disease
DX: I50.42 Chronic combined systolic (congestive) and diastolic (congestive) heart failure (principal)

== ENCOUNTER → 2021-08-06 | Outpatient (CLI) | payer MEDICARE, OTHER, BC ==
[2021-08-06 11:06] LABS: ALBUMIN 3.5 GM/DL (3.2-5.2); BLOOD UREA NITROGEN 26 MG/DL (7-18); CALCIUM LEVEL 9.2 MG/DL (8.8-10.2); CARBON DIOXIDE LEVEL 29 MEQ/L (21-32); CHLORIDE LEVEL 107 MEQ/L (98-107); CREATININE FOR GFR 1.24 MG/DL (0.70-1.30); GLOMERULAR FILTRATION RATE > 60.0 (>42); GLUCOSE, FASTING 111 MG/DL (70-100); NT-PRO BNP 922 PG/ML (<125); PHOSPHORUS LEVEL 3.3 MG/DL (2.5-4.9); POTASSIUM SERUM 4.5 MEQ/L (3.5-5.1); SODIUM LEVEL 141 MEQ/L (136-145)
== END ==
LOC: M WUC 08:46
PROVIDERS: ATTEND Internal Medicine Cardiovascular Disease
DX: I50.42 Chronic combined systolic (congestive) and diastolic (congestive) heart failure (principal)

== ENCOUNTER → 2021-09-05 | Outpatient (CLI) | payer MEDICARE, OTHER, BC ==
[2021-09-05 16:20] LABS: ALBUMIN 3.8 GM/DL (3.2-5.2); CALCIUM LEVEL 9.3 MG/DL (8.8-10.2); CREATININE FOR GFR 1.46 MG/DL (0.70-1.30); GLOMERULAR FILTRATION RATE 50.2 (>42); PHOSPHORUS LEVEL 4.4 MG/DL (2.5-4.9); POTASSIUM SERUM 4.8 MEQ/L (3.5-5.1)
--- NOTE | 2021-09-05 17:33 | REP ---
INDICATION: SYSTOLIC AND DIASTOLIC HEART FAILURE HYPERTENSIVE HF COMPARISON: 04/21/2021, 01/24/2008. TECHNIQUE: PA/Lateral FINDINGS: Lungs: Clear, no infiltrate. Heart: Normal in size. Mediastinum: There is some tortuosity of the thoracic aorta. Pleural angles: Unremarkable.. Bones and soft tissues: There are degenerative changes of the spine. IMPRESSION: No acute pulmonary disease. <Electronically signed by Enrique Correa > 09/05/21 [id number]
== END ==
LOC: M WUC 11:17
PROVIDERS: ATTEND Internal Medicine Cardiovascular Disease
DX: I50.42 Chronic combined systolic (congestive) and diastolic (congestive) heart failure (principal); I49.3 Ventricular premature depolarization; I11.0 Hypertensive heart disease with heart failure

== ENCOUNTER → 2021-10-13 | Outpatient (CLI) | payer MEDICARE, BC, OTHER ==
[2021-10-13 09:45] LABS: BASO # 0.1 10^3/uL (0.0-0.2); BASO % 0.9 % (0.0-1.0); EOS # 0.1 10^3/uL (0.0-0.5); EOS % 2.1 % (0.0-3.0); HEMATOCRIT 47.2 % (42.0-52.0); HEMOGLOBIN 15.1 g/dl (13.5-17.5); MEAN CORPUSCULAR HEMOGLOBIN 30.3 pg (27.0-33.0); MEAN CORPUSCULAR VOLUME 94.8 fl (80.0-96.0); MONO # 0.4 10^3/uL (0.0-0.8); MONO % 7.6 % (2.0-8.0); NEUTROPHILS # 4.1 10^3/uL (1.5-8.5); PLATELET COUNT, AUTOMATED 215 10^3/uL (150-450); RED BLOOD COUNT 4.98 10^6/uL (4.30-6.10); WHITE BLOOD COUNT 5.7 10^3/uL (4.0-10.0)
[2021-10-13 10:11] LABS: ALBUMIN 3.9 GM/DL (3.2-5.2); BILIRUBIN,TOTAL 0.9 MG/DL (0.2-1.0); CALCIUM LEVEL 9.1 MG/DL (8.8-10.2); CREATININE FOR GFR 1.49 MG/DL (0.70-1.30); GLOMERULAR FILTRATION RATE 49.1 (>42); POTASSIUM SERUM 4.1 MEQ/L (3.5-5.1); TOTAL PROTEIN 6.8 GM/DL (6.4-8.2)
== END ==
LOC: M WUC 08:24
PROVIDERS: ATTEND Internal Medicine Cardiovascular Disease
DX: I50.42 Chronic combined systolic (congestive) and diastolic (congestive) heart failure (principal); I48.91 Unspecified atrial fibrillation; I11.0 Hypertensive heart disease with heart failure; R94.31 Abnormal electrocardiogram [ECG] [EKG]

== ENCOUNTER → 2022-01-12 | Outpatient (CLI) | payer MEDICARE, BC, OTHER ==
[2022-01-12 12:28] LABS: HEMATOCRIT 44.8 % (42.0-52.0); HEMOGLOBIN 14.8 g/dl (13.5-17.5); MEAN CORPUSCULAR HEMOGLOBIN 31.6 pg (27.0-33.0); MEAN CORPUSCULAR VOLUME 95.7 fl (80.0-96.0); PLATELET COUNT, AUTOMATED 220 10^3/uL (150-450); RED BLOOD COUNT 4.68 10^6/uL (4.30-6.10); WHITE BLOOD COUNT 6.7 10^3/uL (4.0-10.0)
[2022-01-12 12:52] LABS: CALCIUM LEVEL 9.1 MG/DL (8.8-10.2); CREATININE FOR GFR 1.36 MG/DL (0.70-1.30); GLOMERULAR FILTRATION RATE 54.5 (>42); PHOSPHORUS LEVEL 3.7 MG/DL (2.5-4.9); POTASSIUM SERUM 4.4 MEQ/L (3.5-5.1); THYROID STIMULATING HORMONE 1.95 uIU/ML (0.358-3.740)
== END ==
LOC: M WUC 09:31
PROVIDERS: ATTEND Internal Medicine Cardiovascular Disease
DX: I48.91 Unspecified atrial fibrillation (principal); I50.42 Chronic combined systolic (congestive) and diastolic (congestive) heart failure

== ENCOUNTER → 2022-07-15 | Outpatient (CLI) | payer MEDICARE, BC, OTHER ==
[2022-07-15 13:02] LABS: BASO # 0.1 10^3/uL (0.0-0.2); BASO % 0.8 % (0.0-1.0); EOS # 0.1 10^3/uL (0.0-0.5); EOS % 0.8 % (0.0-3.0); HEMATOCRIT 45.1 % (42.0-52.0); HEMOGLOBIN 14.6 g/dl (13.5-17.5); LYMPH # 0.8 10^3/uL (1.5-5.0); LYMPH % 11.2 % (24.0-44.0); MEAN CORPUSCULAR HEMOGLOBIN 30.5 pg (27.0-33.0); MEAN CORPUSCULAR HGB CONC 32.4 g/dl (32.0-36.5); MEAN CORPUSCULAR VOLUME 94.4 fl (80.0-96.0); MONO # 0.7 10^3/uL (0.0-0.8); MONO % 8.9 % (2.0-8.0); NEUTROPHILS # 5.7 10^3/uL (1.5-8.5); NEUTROPHILS % 77.8 % (36.0-66.0); PLATELET COUNT, AUTOMATED 218 10^3/uL (150-450); RED BLOOD COUNT 4.78 10^6/uL (4.30-6.10); WHITE BLOOD COUNT 7.3 10^3/uL (4.0-10.0)
[2022-07-15 13:49] LABS: ALBUMIN 3.6 GM/DL (3.2-5.2); CALCIUM LEVEL 8.9 MG/DL (8.8-10.2); CREATININE FOR GFR 1.47 MG/DL (0.70-1.30); GLOMERULAR FILTRATION RATE 49.7 (>42); POTASSIUM SERUM 4.3 MEQ/L (3.5-5.1); THYROID STIMULATING HORMONE 1.77 uIU/ML (0.358-3.740); TOTAL PROTEIN 6.6 GM/DL (6.4-8.2)
== END ==
LOC: M WUC 11:25
PROVIDERS: ATTEND Internal Medicine Cardiovascular Disease
DX: I48.0 Paroxysmal atrial fibrillation (principal); I50.42 Chronic combined systolic (congestive) and diastolic (congestive) heart failure; I34.0 Nonrheumatic mitral (valve) insufficiency; I11.0 Hypertensive heart disease with heart failure

== ENCOUNTER → 2023-02-10 | Outpatient (CLI) | payer MEDICARE, BC, OTHER ==
[~2023-02-10] MED LIST changes: +ENAL1TAB48 PO; -ENAL5TA PO
[2023-02-10 10:31] LABS: ALBUMIN 3.7 G/DL (3.2-5.2); BILIRUBIN,TOTAL 1.4 MG/DL (0.3-1.2); CALCIUM LEVEL 8.6 MG/DL (8.3-10.6); CREATININE FOR GFR 1.33 MG/DL (0.70-1.30); GLOMERULAR FILTRATION RATE 55.8 (>42); POTASSIUM SERUM 4.2 MMOL/L (3.5-5.1); TOTAL PROTEIN 6.5 G/DL (5.7-8.2)
[2023-02-10 10:33] LABS: THYROID STIMULATING HORMONE 2.107 uIU/ML (0.55-4.78)
[2023-02-10 10:34] LABS: BASO # 0.1 10^3/uL (0.0-0.2); BASO % 0.9 % (0.0-1.0); EOS # 0.1 10^3/uL (0.0-0.5); EOS % 1.1 % (0.0-3.0); HEMATOCRIT 48.1 % (42.0-52.0); HEMOGLOBIN 15.5 g/dl (13.5-17.5); LYMPH # 1.1 10^3/uL (1.5-5.0); LYMPH % 16.7 % (24.0-44.0); MEAN CORPUSCULAR HEMOGLOBIN 30.5 pg (27.0-33.0); MEAN CORPUSCULAR HGB CONC 32.2 g/dl (32.0-36.5); MEAN CORPUSCULAR VOLUME 94.5 fl (80.0-96.0); MONO # 0.5 10^3/uL (0.0-0.8); MONO % 7.6 % (2.0-8.0); NEUTROPHILS # 4.7 10^3/uL (1.5-8.5); NEUTROPHILS % 73.4 % (36.0-66.0); PLATELET COUNT, AUTOMATED 218 10^3/uL (150-450); RED BLOOD COUNT 5.09 10^6/uL (4.30-6.10); WHITE BLOOD COUNT 6.4 10^3/uL (4.0-10.0)
== END ==
LOC: M WUC 08:23
PROVIDERS: ATTEND Internal Medicine Cardiovascular Disease
DX: I50.42 Chronic combined systolic (congestive) and diastolic (congestive) heart failure (principal); I34.0 Nonrheumatic mitral (valve) insufficiency; I48.0 Paroxysmal atrial fibrillation; I11.0 Hypertensive heart disease with heart failure; I49.3 Ventricular premature depolarization

== ENCOUNTER → 2023-12-27 | Outpatient (CLI) | payer MEDICARE, BC | LOC: M PLAIMG 14:40 | PROVIDERS: ATTEND Internal Medicine Cardiovascular Disease | DX: I50.42 Chronic combined systolic (congestive) and diastolic (congestive) heart failure (principal) ==

== ENCOUNTER → 2024-03-06 | Outpatient (CLI) | payer MEDICARE, BC ==
[2024-03-06 15:34] LABS: BASO # 0.1 10^3/uL (0.0-0.2); BASO % 0.7 % (0.0-1.0); EOS # 0.1 10^3/uL (0.0-0.5); EOS % 0.7 % (0.0-3.0); HEMATOCRIT 46.3 % (42.0-52.0); HEMOGLOBIN 15.4 g/dl (13.5-17.5); LYMPH # 0.9 10^3/uL (1.5-5.0); LYMPH % 11.8 % (24.0-44.0); MEAN CORPUSCULAR HGB CONC 33.3 g/dl (32.0-36.5); MEAN CORPUSCULAR VOLUME 93.2 fl (80.0-96.0); MONO # 0.6 10^3/uL (0.0-0.8); MONO % 7.6 % (2.0-8.0); NEUTROPHILS # 5.7 10^3/uL (1.5-8.5); NEUTROPHILS % 78.6 % (36.0-66.0); PLATELET COUNT, AUTOMATED 227 10^3/uL (150-450); RED BLOOD COUNT 4.97 10^6/uL (4.30-6.10); WHITE BLOOD COUNT 7.2 10^3/uL (4.0-10.0)
[2024-03-06 16:07] LABS: ALBUMIN 4.1 G/DL (3.2-5.2); BILIRUBIN,TOTAL 1.2 MG/DL (0.3-1.2); CALCIUM LEVEL 9.3 MG/DL (8.3-10.6); CREATININE FOR GFR 1.25 MG/DL (0.70-1.30); GLOMERULAR FILTRATION RATE 59.6 (>42); POTASSIUM SERUM 4.7 MMOL/L (3.5-5.1); THYROID STIMULATING HORMONE 2.005 uIU/ML (0.55-4.78); TOTAL PROTEIN 6.7 G/DL (5.7-8.2)
== END ==
LOC: M PLALAB 12:01
PROVIDERS: ATTEND Internal Medicine Cardiovascular Disease
DX: I50.22 Chronic systolic (congestive) heart failure (principal); I48.0 Paroxysmal atrial fibrillation; I49.3 Ventricular premature depolarization; I11.0 Hypertensive heart disease with heart failure; I34.0 Nonrheumatic mitral (valve) insufficiency

== ENCOUNTER → 2024-09-11 | Outpatient (CLI) | payer MEDICARE, BC ==
[2024-09-11 17:14] LABS: BASO # 0.1 10^3/uL (0.0-0.2); BASO % 0.8 % (0.0-1.0); EOS # 0.1 10^3/uL (0.0-0.5); EOS % 1.1 % (0.0-3.0); HEMOGLOBIN 15.3 g/dl (13.5-17.5); LYMPH # 0.9 10^3/uL (1.5-5.0); LYMPH % 14.6 % (24.0-44.0); MEAN CORPUSCULAR HEMOGLOBIN 30.2 pg (27.0-33.0); MEAN CORPUSCULAR HGB CONC 32.6 g/dl (32.0-36.5); MEAN CORPUSCULAR VOLUME 92.9 fl (80.0-96.0); MONO # 0.6 10^3/uL (0.0-0.8); MONO % 10.1 % (2.0-8.0); NEUTROPHILS # 4.6 10^3/uL (1.5-8.5); NEUTROPHILS % 73.1 % (36.0-66.0); PLATELET COUNT, AUTOMATED 211 10^3/uL (150-450); RED BLOOD COUNT 5.06 10^6/uL (4.30-6.10); WHITE BLOOD COUNT 6.3 10^3/uL (4.0-10.0)
[2024-09-11 17:42] LABS: BILIRUBIN,TOTAL 1.6 MG/DL (0.3-1.2); CALCIUM LEVEL 9.5 MG/DL (8.3-10.6); CREATININE FOR GFR 1.28 MG/DL (0.70-1.30); MAGNESIUM LEVEL 2.3 MG/DL (1.8-2.4); POTASSIUM SERUM 4.4 MMOL/L (3.5-5.1)
[2024-09-11 17:43] LABS: THYROID STIMULATING HORMONE 1.286 uIU/ML (0.55-4.78)
== END ==
LOC: M WUC 13:55
PROVIDERS: ATTEND Internal Medicine Cardiovascular Disease
DX: I50.22 Chronic systolic (congestive) heart failure (principal); I48.0 Paroxysmal atrial fibrillation; I49.3 Ventricular premature depolarization; I11.0 Hypertensive heart disease with heart failure

== ENCOUNTER → 2025-04-20 | Outpatient (CLI) | payer MEDICARE, BC ==
[~2025-04-20] MED LIST changes: -FLOM0.4C39 PO; +TAMS-18 PO
[2025-04-20 12:26] LABS: BASO # 0.0 10^3/uL (0.0-0.2); BASO % 0.7 % (0.0-1.0); EOS # 0.1 10^3/uL (0.0-0.5); EOS % 1.6 % (0.0-3.0); LYMPH # 0.9 10^3/uL (1.5-5.0); LYMPH % 16.2 % (24.0-44.0); MONO # 0.6 10^3/uL (0.0-0.8); MONO % 10.3 % (2.0-8.0); NEUTROPHILS # 4.0 10^3/uL (1.5-8.5); NEUTROPHILS % 71.0 % (36.0-66.0); PLATELET COUNT, AUTOMATED 214 10^3/uL (150-450)
[2025-04-20 12:27] LABS: ALT/SGPT 23.0 U/L (7.0-40); AST/SGOT 19.0 U/L (<34); CALCIUM LEVEL 8.8 MG/DL (8.3-10.6); CARBON DIOXIDE LEVEL 27.0 MMOL/L (20-31); CHLORIDE LEVEL 105.0 MMOL/L (98-107); CHOLESTEROL LEVEL 123.0 MG/DL (<200); CHOLESTEROL RISK RATIO 2.67 (<5); CREATININE FOR GFR 1.22 MG/DL (0.70-1.30); GLOMERULAR FILTRATION RATE 60.7 (>42); LDL CHOLESTEROL 66.9 MG/DL (<100); MAGNESIUM LEVEL 2.2 MG/DL (1.8-2.4); NON-HDL-C 77.1 MG/DL; POTASSIUM SERUM 4.4 MMOL/L (3.5-5.1); SODIUM LEVEL 145.0 MMOL/L (136-145); TRIGLYCERIDES LEVEL 51.0 MG/DL (<150)
[2025-04-20 12:29] LABS: FREE T4 1.47 NG/DL (0.89-1.76)
== END ==
LOC: M WUC 08:09
PROVIDERS: ATTEND Physician Assistant
DX: I48.0 Paroxysmal atrial fibrillation (principal); I50.22 Chronic systolic (congestive) heart failure; E78.5 Hyperlipidemia, unspecified

== ENCOUNTER → 2025-06-04 | Outpatient (CLI) | payer MEDICARE, BC ==
[~2025-06-04] MED LIST changes: -IBUP-1022 PO; +IBUP600T42 PO
[2025-06-04 16:27] LABS: FREE T4 1.32 NG/DL (0.89-1.76)
== END ==
LOC: M WUC 11:49
PROVIDERS: ATTEND Physician Assistant
DX: I48.0 Paroxysmal atrial fibrillation (principal)